=== PATIENT | male | born 1955 | race Caucasian/White ===

== ENCOUNTER 2019-04-13 10:18 | Day surgery (SDC) | payer OTHER ==
[~2019-04-13 10:18] MED LIST: CHOL100013 PO; CHOL2000 PO; CIPROFLOXACIN 0.3% OPHTH SOLUTION 5ML BOTTLE. OS ONE; CITA10TA8 PO; CRESTOR20 MG PO; FAMO-63 PO; HYDROmorphone 2 MG/ML VIAL IV PRN; IV RINGERS,LACTATED 1000ML 1,000 ML IV SCH; LIDOCAINE 1% PF 2 ML VIAL. ID PRN; LIDOCAINE 2% JELLY 6ML IN APPLICATOR. MM SCH; MIRA25TA PO; MORPHINE SULFATE 2 MG/ML VIAL. IV PRN; NAPR220C4 PO; ONDANSETRON PF 4 MG/2 ML VIAL. IV PRN; PROCHLORPERAZINE 10 MG/2 ML VIAL. IV PRN; PROPARACAINE 0.5% OPHTH SOLUTION 15ML BOTTLE. OS ONE; RABE20TA18 PO; fentaNYL PF VIAL 100 MCG/2 ML VIAL IV PRN
[2019-04-13] MEDS ORDERED: NEO/POLYMYX/DEXAMETH OPHTH OINTMENT 3.5GM TUBE. ONE (10:22)
[2019-04-13] MEDS ORDERED: CHONDROIT-SOD-HYALURONATE KIT. ONE (10:23)
[2019-04-13] MEDS ORDERED: LIDOCAINE 1% PF 2 ML VIAL. ONE (10:23)
[2019-04-13] MEDS ORDERED: CHONDROITIN-SOD-HYALURONATE 0.5 ML DISP.SYRIN. ONE (10:23)
[2019-04-13] MEDS: PHENYLEPHRINE 10% OPHTH SOLUTION 5ML BOTTLE. OS SCH ×3 (10:56→11:14)
[2019-04-13] MEDS: CYCLOPENTOLATE 1% OPTH SOLUTION 2ML BOTTLE. OS SCH ×3 (10:57→11:15)
[2019-04-13] MEDS ORDERED: MIDAZOLAM HCL/PF 2 MG/2 ML VIAL. ONE (12:21)
[2019-04-13] MEDS ORDERED: GLYCOPYRROLATE 1 MG/5 ML VIAL. ONE (12:30)
[2019-04-13 13:02] VITALS: BP 114/76
--- NOTE | 2019-04-13 18:56 | OP ---
DATE OF SURGERY: 04/13/2019 PREOPERATIVE DIAGNOSIS: Cataract of the left eye. PROCEDURE: Phacoemulsification with posterior chamber intraocular lens implantation of the left eye. INDICATIONS: Painless progressive visual loss with visually significant cataract in the left eye and difficulty reading and driving. SURGEON: Lei Chavez MD ANESTHESIA: Topical with monitored anesthesia care. DESCRIPTION OF PROCEDURE: The left eye was prepped with Betadine in the usual sterile fashion and draped. Lidocaine jelly was used for anesthesia. A paracentesis was performed followed by instillation of preservative-free lidocaine admixed with balanced salt solution and phenylephrine. A temporal clear corneal incision was made and Viscoat was injected into the anterior chamber. A capsulorrhexis was performed and hydrodissection followed. The phacoemulsification handpiece was used to remove the nucleus in a modified stop and chop fashion. The I/A handpiece was used to remove the remainder of the cortex. Viscoelastic was then injected in the capsular bag and an Obed model [id number] with a power of 19.0 diopters was placed into the capsular bag. Balanced salt solution was used to hydrate the corneal wounds and the viscoelastic evacuated with the I/A handpiece. Once no leak was noted, Maxitrol was placed on the eye and the eye shielded and the patient was sent to the recovery room uneventfully. JUSTINA DUFF MD DR: SHAZIA/nts JOB#: [id number] / [id number]
== END 2019-04-13 14:03 | disposition home or self-care (01) ==
LOC: SURG 10:18
PROVIDERS: ATTEND Ophthalmology
DX: H26.9 Unspecified cataract (principal)
CPT/HCPCS: 66984; C1780; J0171; J0690; J1580; J2250; J3490

== ENCOUNTER 2019-05-04 10:15 | Day surgery (SDC) | payer OTHER ==
[~2019-05-04 10:15] MED LIST changes: +CIPROFLOXACIN 0.3% OPHTH SOLUTION 5ML BOTTLE. OD ONE; -CIPROFLOXACIN 0.3% OPHTH SOLUTION 5ML BOTTLE. OS ONE; -HYDROmorphone 2 MG/ML VIAL IV PRN; -IV RINGERS,LACTATED 1000ML 1,000 ML IV SCH; -LIDOCAINE 1% PF 2 ML VIAL. ID PRN; -MORPHINE SULFATE 2 MG/ML VIAL. IV PRN; -ONDANSETRON PF 4 MG/2 ML VIAL. IV PRN; -PROCHLORPERAZINE 10 MG/2 ML VIAL. IV PRN; +PROPARACAINE 0.5% OPHTH SOLUTION 15ML BOTTLE. OD ONE; -PROPARACAINE 0.5% OPHTH SOLUTION 15ML BOTTLE. OS ONE; -fentaNYL PF VIAL 100 MCG/2 ML VIAL IV PRN
[2019-05-04] MEDS: PHENYLEPHRINE 10% OPHTH SOLUTION 5ML BOTTLE. OD SCH ×3 (11:13→11:27)
[2019-05-04] MEDS: CYCLOPENTOLATE 1% OPTH SOLUTION 2ML BOTTLE. OD SCH ×3 (11:14→11:27)
[2019-05-04] MEDS ORDERED: NEO/POLYMYX/DEXAMETH OPHTH OINTMENT 3.5GM TUBE. ONE (11:21)
[2019-05-04] MEDS ORDERED: CHONDROITIN-SOD-HYALURONATE 0.5 ML DISP.SYRIN. ONE (11:22)
[2019-05-04] MEDS ORDERED: LIDOCAINE 2% JELLY 6ML IN APPLICATOR. ONE (11:22)
[2019-05-04] MEDS ORDERED: CHONDROIT-SOD-HYALURONATE KIT. ONE (11:22)
[2019-05-04] MEDS ORDERED: MIDAZOLAM HCL/PF 2 MG/2 ML VIAL. ONE (12:41)
--- NOTE | 2019-05-04 13:32 | OP ---
DATE OF SURGERY: 05/04/2019 PREOPERATIVE DIAGNOSIS: Cataract of the right eye. PROCEDURE: Phacoemulsification with posterior chamber intraocular lens implantation. INDICATIONS: Painless progressive visual loss and a visually significant cataract. SURGEON: Justina Odom MD ANESTHESIA: Local with monitored anesthesia care. DESCRIPTION OF PROCEDURE: The right eye was prepped with Betadine in the usual sterile fashion and draped. A paracentesis was performed followed by instillation of preservative-free phenylephrine admixed with lidocaine and balanced salt solution. Viscoelastic was injected in the anterior chamber and a temporal clear corneal incision was made. A capsulorrhexis was performed followed by hydrodissection. The phacoemulsification handpiece was used to remove the nucleus in a modified stop and chop fashion. The I/A handpiece was used to remove the remainder of the cortex. Viscoelastic was injected into the capsular bag and an Obed model [id number] with a power of 19.0 diopters was placed into the capsular bag. Balanced salt solution was used to hydrate the corneal wounds and the viscoelastic evacuated with the I/A handpiece. Once no leak was noted, Maxitrol was placed on the eye and the eye shielded and the patient was sent to the recovery room uneventfully. JUSTINA ODOM MD DR: SHAZIA/shante JOB#: [id number] / [id number]
[2019-05-04 13:35] VITALS: BP 134/65
== END 2019-05-04 14:00 | disposition home or self-care (01) ==
LOC: SURG 10:15
PROVIDERS: ATTEND Ophthalmology
DX: H26.9 Unspecified cataract (principal); H54.61 Unqualified visual loss, right eye, normal vision left eye; K21.9 Gastro-esophageal reflux disease without esophagitis; E78.00 Pure hypercholesterolemia, unspecified; F41.9 Anxiety disorder, unspecified; F32.9 Major depressive disorder, single episode, unspecified; M19.90 Unspecified osteoarthritis, unspecified site; E66.9 Obesity, unspecified; Z87.891 Personal history of nicotine dependence; Z85.46 Personal history of malignant neoplasm of prostate; Z98.890 Other specified postprocedural states
CPT/HCPCS: 66984; J0171; J0690; J1580; J2250; C1780